=== PATIENT | female | born 1985 | race Caucasian/White ===

== ENCOUNTER 2022-04-24 22:21 | Emergency (ER) | payer OTHER, SELFPAY ==
[2022-04-24 22:24] VITALS: BP 200/78; PULSE 100; RESP 18; TEMP 36.6; O2SAT 100
--- NOTE | 2022-04-24 22:56 | PC.NURSE ---
After triage, pt decided to leave ER bc of the visitor policy in . Ambulated out of ED with steady, even, unassisted gait.
== END 2022-04-24 23:24 | disposition left against medical advice (07) ==
LOC: ANHED 23:12
DX: R10.11 Right upper quadrant pain (principal)
CPT/HCPCS: 99199